=== PATIENT | male | born 1935 | race Caucasian/White ===

== ENCOUNTER 2016-09-02 15:57 | Emergency (ER) | payer OTHER ==
[~2016-09-02] VITALS: Wt 69.0 kg
[~2016-09-02 15:57] MED LIST: IBUP-1542 PO
--- NOTE | 2016-09-02 20:03 | ERD ---
ER Documentation Chief Complaint Date/Time DATE: 09/02/16 TIME: 20:03 Chief Complaint SENT FOR DIZINESS AND ABNORMAL EKG HPI 80-year-old male with history of remote right-sided facial tumor status post resection but no other significant medical history referred to the ED from [facility] clinic for evaluation of abnormal EKG and dizziness. Patient states that approximately 8 months ago he had some symptoms of dizziness which he describes as lightheadedness but not vertiginous symptoms that have resolved. No headache, visual changes, focal weakness or numbness. He went to the clinic today because of diffuse body pains that he has been having recently an EKG was abnormal and he is referred to the ED for further evaluation. He denies chest pain or palpitations. No shortness of breath or cough. No PND, orthopnea or exertional dyspnea. No calf pain or swelling. Denies abdominal pain, nausea or vomiting. No dysuria or polyuria. No fevers or chills. ROS All systems reviewed and are negative except as per history of present illness. Medications Home Meds Active Scripts Ibuprofen* (Motrin*) 600 Mg Tab, 600 MG PO Q6H Y for PAIN AND OR ELEVATED TEMP, #20 TAB With food or milk Prov:KATT CLAUDIO MD 09/02/16 Ibuprofen* (Motrin*) 600 Mg Tab, 600 MG PO Q6H Y for PAIN AND OR ELEVATED TEMP, #30 TAB Prov:LOLI DEL VALLE NP 08/18/15 PMhx/Soc History of Surgery: Yes (Right facial tumor removal, left incarcerated hernia) Hx Neurological Disorder: Yes (Dizziness) Hx Respiratory Disorders: No Hx Cardiac Disorders: No Hx Psychiatric Problems: No Hx Miscellaneous Medical Probl: No Hx Alcohol Use: No Hx Substance Use: No Hx Tobacco Use: No FmHx No stroke or cancer Physical Exam Vitals Vital Signs Date Time Temp Pulse Resp B/P Pulse Ox O2 Delivery O2 Flow Rate FiO2 09/02/16 22:09 56 13 137/87 99 Room Air 09/02/16 20:30 60 16 129/75 98 Room Air 09/02/16 15:59 98.7 91 18 108/66 99 Physical Exam Const: Alert, no acute distress. Head: Atraumatic Eyes: Normal Conjunctiva. Pupils equal reactive to light, extraocular movements are intact. Bilateral arcus senilis. No nystagmus. ENT: Normal External Ears, Nose and Mouth. Status post resection of right facial tumor. Neck: Full range of motion. Nontender. No meningismus. Resp: Breath sounds are equal and clear to auscultation bilaterally. No rales rhonchi or wheezes. Cardio: Regular rate and rhythm, no murmurs Abd: Soft, non tender, non distended. Normal bowel sounds Skin: No petechiae or rashes Back: No midline or flank tenderness Ext: No cyanosis, or edema Neur: Awake and alert. Cranial nerves II through XII are grossly intact motor and sensory equal bilaterally. No focal deficit observed Psych: Normal Mood and Affect Result Diagram: 09/02/16200909/02/162009 Results 24 hrs Laboratory Tests Test 09/02/16 20:10 White Blood Count 6.010^3/ul Red Blood Count 4.9110^6/ul Hemoglobin 13.9g/dl Hematocrit 42.9% Mean Corpuscular Volume 87.4fl Mean Corpuscular Hemoglobin 28.3pg Mean Corpuscular Hemoglobin Concent 32.4g/dl Red Cell Distribution Width 13.5% Platelet Count 81546^3/UL Mean Platelet Volume 8.9fl Neutrophils % 70.4% Lymphocytes % 16.5% Monocytes % 8.2% Eosinophils % 4.3% Basophils % 0.3% Nucleated Red Blood Cells % 0.0/100WBC Neutrophils # 4.210^3/ul Lymphocytes # 1.010^3/ul Monocytes # 0.510^3/ul Eosinophils # 0.310^3/ul Basophils # 0.010^3/ul Nucleated Red Blood Cells # 0.010^3/ul Sodium Level 140mmol/L Potassium Level 4.2mmol/L Chloride Level 102mmol/L Carbon Dioxide Level 26mmol/L Anion Gap 16 Blood Urea Nitrogen 17mg/dl Creatinine 0.89mg/dl Glucose Level 95mg/dl Calcium Level 9.4mg/dl Total Bilirubin 0.5mg/dl Direct Bilirubin 0.00mg/dl Indirect Bilirubin 0.5mg/dl Aspartate Amino Transf (AST/SGOT) 23IU/L Alanine Aminotransferase (ALT/SGPT) 14IU/L Alkaline Phosphatase 109IU/L Troponin I < 0.012ng/ml Total Protein 7.2g/dl Albumin 4.2g/dl Globulin 3.00g/dl Albumin/Globulin Ratio 1.40 Lipase 141U/L EKG: TIME: 16:12. Sinus rhythm. Ventricular rate 84. Normal CT and QRS. Left anterior hemiblock. No acute ST segment elevation or depression. No ectopy. EP Interpretation: Abnormal EKG. IMAGING: PROCEDURE: CT Brain without. CLINICAL INDICATION: Dizziness. TECHNIQUE: A CT of the brain was performed on multidetector high-resolution CT scanner utilizing axial sections from the skull base through the vertex without contrast. The scan was reviewed in soft tissue brain and high frequency resolution bone algorithm windows. Images were reviewed on a high- resolution PACS workstation. One or more the following does reduction techniques were utilized: Automated exposure control, adjustment of the mA/ or kV according to patient's size, or use of iterative reconstruction technique. The exam CTDI = 43.40 mGy and the DLP = 720.23 mGy-cm. COMPARISON: None available. FINDINGS: The ventricles and sulci are mildly prominent indicative of volume loss. There is no intracranial hemorrhage, mass effect or midline shift. No abnormal intra- axial or extra-axial fluid collections are seen. The damon/white matter differentiation is preserved. There are mild scattered foci of hypoattenuation in the white matter, which are nonspecific in etiology but likely reflect chronic small vessel ischemic changes. There are mild intracranial vascular calcifications consistent with atherosclerosis. The visualized paranasal sinuses are essentially clear. IMPRESSION: 1. No acute intracranial hemorrhage, transcortical infarction or mass effect. 2. Mild intracranial atherosclerosis and chronic small vessel ischemic changes. 3. Mild generalized cerebral volume loss. RPTAT: HFN .Kyle Martínez MD, MD Date Time Electronically viewed and signed by .Kyle Martínez MD, on 09/02/2016 21: 00 .N/ PROCEDURE: XR Chest. CLINICAL INDICATION: Dizziness. TECHNIQUE: Single frontal chest x-ray. COMPARISON: None available. FINDINGS: The cardiomediastinal silhouette is unremarkable. Aortic atherosclerotic vascular calcifications are identified. Prominent interstitial pulmonary markings are noted, likely represent chronic changes with probable superimposed edema. No pneumothorax, pleural effusion or consolidation is seen. No acute osseous abnormality is noted. IMPRESSION: 1. Chronic interstitial pulmonary changes with probable superimposed edema. 2. Aortic atherosclerosis. 3. Otherwise no acute cardiopulmonary abnormality. RPTAT: HFN .Kyle Martínez MD, MD Date Time Electronically viewed and signed by .Kyle Martínez MD, on 09/02/2016 21: 02 .N/ Procedures/MDM DOCUMENTS REVIEWED: ED nurse, prior records MEDICAL DECISION MAKIN-year-old male with history of remote right-sided facial tumor status post resection but no other significant medical history referred to the ED from [facility] clinic for evaluation of abnormal EKG and dizziness. Patient states he feels well and just wants some medication for his bone pain. Extensive evaluation including CBC, chemistry, CT brain are unremarkable. Chest x-ray reveals chronic interstitial changes the patient has no shortness of breath the lungs are clear. An occult malignancy is not ruled out. EKG reveals a left anterior hemiblock but no acute ischemic changes or ectopy. No chest pain or other harbingers of acute coronary syndrome. Patient with a prior history of dizziness but none recently. No acute neurologic changes or other signs of CVA or TIA. CT of the brain again is unremarkable. In the absence of signs of serious disease outpatient management and follow-up is appropriate. Patient is stable for discharge with precautionary instructions and outpatient follow-up as counseled. Counseled patient and family regarding diagnostic workup, diagnosis and need for followup. Understands to return to ED if symptoms recur, worsen or any other concerns. Departure Diagnosis: Primary Impression: Complaints of total body pain Additional Impressions: Abnormal ECG H/O dizziness Condition: Stable KATT CLAUDIO MD Sep 02, 2016 20:03
[2016-09-02 20:30] LABS: ADD SCAN DIFF NO
[2016-09-02 20:32] LABS: BASOPHILS % 0.3 % (0.0-2.0); EOSINOPHILS # 0.3 10^3/ul (0.0-0.5); EOSINOPHILS % 4.3 % (0.0-7.0); HEMATOCRIT 42.9 % (42.0-52.0); HEMOGLOBIN 13.9 g/dl (14.0-18.0); LYMPHOCYTES % 16.5 % (15.0-51.0); MEAN CORPUSCULAR HEMOGLOBIN 28.3 pg (29.0-33.0); MEAN CORPUSCULAR HGB CONC 32.4 g/dl (32.0-37.0); MEAN CORPUSCULAR VOLUME 87.4 fl (82.0-101.0); MEAN PLATELET VOLUME 8.9 fl (7.4-10.4); MONOCYTE # 0.5 10^3/ul (0.3-0.9); MONOCYTES % 8.2 % (0.0-11.0); NEUTROPHIL # 4.2 10^3/ul (1.6-7.5); NEUTROPHILS % 70.4 % (39.0-77.0); PLATELET COUNT 250 10^3/UL (140-415); RED BLOOD COUNT 4.91 10^6/ul (4.70-6.10); RED CELL DISTRIBUTION WIDTH 13.5 % (11.5-14.5)
[2016-09-02 20:43] LABS: ALBUMIN 4.2 g/dl (3.3-4.9); CHLORIDE 102 mmol/L (97-110); POTASSIUM 4.2 mmol/L (3.5-5.1); SODIUM 140 mmol/L (135-144)
[2016-09-02 20:45] LABS: BILIRUBIN,INDIRECT 0.5 mg/dl (0-1.1); BILIRUBIN,TOTAL 0.5 mg/dl (0.2-1.3); CREATININE 0.89 mg/dl (0.61-1.24)
[2016-09-02 20:46] LABS: ALANINE AMINOTRANSFERASE 14 IU/L (13-69); ALKALINE PHOSPHATASE 109 IU/L (42-121); ANION GAP 16 (8-16); ASPARTATE AMINO TRANSFERASE 23 IU/L (15-46); BLOOD UREA NITROGEN 17 mg/dl (7-20); CALCIUM 9.4 mg/dl (8.4-10.2); CARBON DIOXIDE 26 mmol/L (21-31); GLUCOSE 95 mg/dl (70-220); TOTAL PROTEIN 7.2 g/dl (6.1-8.1)
--- NOTE | 2016-09-02 21:00 | RADRPT ---
PROCEDURE: CT Brain without. CLINICAL INDICATION: Dizziness. TECHNIQUE: A CT of the brain was performed on multidetector high-resolution CT scanner utilizing a xial sections from the skull base through the vertex without contrast. The scan was reviewed in sof t tissue brain and high frequency resolution bone algorithm windows. Images were reviewed on a high -resolution PACS workstation. One or more the following does reduction techniques were utilized: Aut omated exposure control, adjustment of the mA/ or kV according to patient's size, or use of iterativ e reconstruction technique. The exam CTDI = 43.40 mGy and the DLP = 720.23 mGy-cm. COMPARISON: None available. FINDINGS: The ventricles and sulci are mildly prominent indicative of volume loss. There is no intracranial h emorrhage, mass effect or midline shift. No abnormal intra-axial or extra-axial fluid collections a re seen. The damon/white matter differentiation is preserved. There are mild scattered foci of hypoattenuation in the white matter, which are nonspecific in etiol ogy but likely reflect chronic small vessel ischemic changes. There are mild intracranial vascular calcifications consistent with atherosclerosis. The visualized paranasal sinuses are essentially cata ar. IMPRESSION: 1. No acute intracranial hemorrhage, transcortical infarction or mass effect. 2. Mild intracranial atherosclerosis and chronic small vessel ischemic changes. 3. Mild generalized cerebral volume loss. RPTAT: HFN .Kyle Martínez MD, MD Date Time Electronically viewed and signed by .Kyle Martínez MD, MD on 09/02/2016 21:00 .N/
[2016-09-02 21:01] LABS: TROPONIN-I < 0.012 ng/ml (0.00-0.12)
--- NOTE | 2016-09-02 21:03 | RADRPT ---
PROCEDURE: XR Chest. CLINICAL INDICATION: Dizziness. TECHNIQUE: Single frontal chest x-ray. COMPARISON: None available. FINDINGS: The cardiomediastinal silhouette is unremarkable. Aortic atherosclerotic vascular calcifications are identified. Prominent interstitial pulmonary markings are noted, likely represent chronic changes with probable superimposed edema. No pneumothorax, pleural effusion or consolidation is seen. No acute osseous abnormality is noted. IMPRESSION: 1. Chronic interstitial pulmonary changes with probable superimposed edema. 2. Aortic atherosclerosis. 3. Otherwise no acute cardiopulmonary abnormality. RPTAT: HFN .Kyle Martínez MD, MD Date Time Electronically viewed and signed by .Kyle Martínez MD, on 09/02/2016 21:02 .N/
[2016-09-02] MEDS ORDERED: IBUP-1542 PO (21:54)
[2016-09-02 22:09] VITALS: BP 137/87; PULSE 56; RESP 13
== END 2016-09-02 22:10 | disposition home or self-care (01) ==
LOC: E/R 15:57
DX: R52 Pain, unspecified (principal); R94.31 Abnormal electrocardiogram [ECG] [EKG]; Z85.89 Personal history of malignant neoplasm of other organs and systems
CPT/HCPCS: 70450; 71010; 80053; 83690; 84484; 85025; 93005; Z7502

== ENCOUNTER 2017-11-18 12:24 | Emergency (ER) | END 2017-11-18 14:33 | disposition home or self-care (01) ==